=== PATIENT | male | born 1990 | race Caucasian/White ===

== ENCOUNTER → 2022-07-02 10:41 | Outpatient (CLI) | payer BC, SELFPAY ==
[2022-07-02 18:55] LABS: Basophils % 0.6 % (0.1-2.0); Eosinophils # 0.2 K/mm3 (0.0-0.4); Eosinophils % 2.5 % (0.1-12.0); Hematocrit 41.4 % (42.0-52.0); Hemoglobin 13.9 g/dL (14.1-18.0); Lymphocytes # 1.4 K/mm3 (0.7-4.5); Lymphocytes % 19.4 % (10-50); Mean Corpuscular HGB Conc 33.5 g/dL (31.8-35.4); Mean Corpuscular Hemoglobin 26.5 pg (27.0-31.2); Mean Corpuscular Volume 79.3 fl (80-94); Mean Platelet Volume 8.7 fl (7.4-10.4); Monocytes # 0.7 K/mm3 (0.1-1.0); Monocytes % 9.7 % (1.7-9.3); Neutrophils % 67.8 % (37.0-80.0); Platelet Count 273 K/mm3 (142-424); Red Blood Count 5.23 M/mm3 (4.60-6.20); Red Cell Distribution Width 13.5 % (11.5-17.5); White Blood Count 7.4 K/mm3 (4.8-10.8)
[2022-07-02 19:02] LABS: Alanine Aminotransferase 36 U/L (12-78); Albumin Level 4.5 g/dl (3.5-5.0); Albumin/Globulin Ratio 1.6 (1.1-1.8); Alkaline Phosphatase 110 U/L (38-126); Aspartate Amino Transferase 38 U/L (17-59); Bilirubin,Total 0.5 mg/dl (0.2-1.3); Blood Urea Nitrogen 13 mg/dl (9-20); Calcium 9.4 mg/dl (8.4-10.2); Carbon Dioxide 27 mmol/L (22.0-30.0); Chloride 101 mmol/L (98-107); Estimated Glomerular Filt Rate 79 ml/min (>60); GFR (African American) 95 ML/MIN (>60); Globulin 2.8 g/dL (1.3-3.2); Glucose 97 mg/dl (74-100); Sodium 137 mmol/L (136-145); Total Protein,Serum 7.3 g/dl (6.3-8.2)
== END | disposition home or self-care (01) ==
PROVIDERS: PCP Nurse Practitioner Family; Visit Provider Nurse Practitioner Family
DX: R19.7 Diarrhea, unspecified (principal)
CPT/HCPCS: 80053; 85025

== ENCOUNTER 2022-07-07 10:52 | Emergency (ER) | payer BC, SELFPAY ==
[2022-07-07 12:15] VITALS: BP 112/71; PULSE 101; RESP 18; TEMP 36.8; O2SAT 98; BMI 26.6
--- NOTE | 2022-07-07 12:40 | EXP.UTC ---
Discharge Plan Disposition Patient Disposition: Home, Self-Care Condition: Good Prescriptions Prescriptions: New ondansetron HCl 4 mg tablet 4 mg PO Q8H PRN (Reason: nausea and vomiting) Qty: 14 0RF No Action mycophenolate mofetil [CellCept] 500 mg tablet 1,000 mg PO BID sirolimus [Rapamune] 0.5 mg tablet 2.5 mg PO DAILY nifedipine 60 mg tablet extended release 60 mg PO BID lisinopril 10 mg tablet 10 mg PO DAILY rosuvastatin [Crestor] 40 mg tablet 40 mg PO DAILY fexofenadine [Brigette Allergy] 180 mg tablet 180 mg PO DAILY Referrals Follow up/Referrals: Negrito Arreaga MD [Primary Care Provider] - See instructions Activity Restrictions/Add. Instructions Additional Instructions/Restrictions: Monitor temperature. Seek treatment if fever develops. Follow-up immediately if new or worse symptoms worsen or no noticeable improvement over 48 hours. Increase fluids such as water, Gatorade, Powerade, juice or Pedialyte with limited formula/dietary in children No food is okay as long as you are drinking. Once ready to eat start bland such as bananas, rice, applesauce, toast. Contagious until no diarrhea, vomiting, fever times 48 hours without medication Avoid antidiarrheals unless told otherwise. Best to let the virus run its course. Follow-up immediately for new or worsening symptoms or no noticeable improvement over the next 48 hours. Clinical Impressions Clinical Impression: Diarrhea, Nausea Instructions Patient Instructions: Diarrhea Discharge ED Provider: Nanci ([facility] [place] General Stated complaint: Vomitting, diarreah, abd pain, chills Mode of Arrival: Ambulatory Source of Information: Patient Limitations: No Limitations Time Seen by Provider: 07/07/22 12:40 Description of Symptoms (Recalled from Triage Doc. by RN): PATIENT C/O DIARRHEA, CHILLS AND FATIGUE X 1 WEEK HEENT Symptoms (Recalled from RN notes): No Resp Symptoms (Recalled from RN notes): No Skin Symptoms (Recalled from RN notes): No MS Symptoms (Recalled from RN notes): No Functional Status (Recalled from RN notes): WNL History of Present Illness Provider Complaint: 32 yr old male presents for fatigue, diarrhea,nausea and chills for 1 week. pt states on th it improved and them became watery again Related Data Home Medications Medication Instructions Recorded Confirmed fexofenadine 180 mg tablet 180 mg PO DAILY 07/02/22 07/02/22 (Brigette Allergy) lisinopril 10 mg tablet 10 mg PO DAILY 07/02/22 07/02/22 mycophenolate mofetil 500 mg 1,000 mg PO BID kidney transplant 07/02/22 07/02/22 tablet (CellCept) nifedipine 60 mg tablet,extended 60 mg PO BID 07/02/22 07/02/22 release rosuvastatin 40 mg tablet (Crestor) 40 mg PO DAILY 07/02/22 07/02/22 sirolimus 0.5 mg tablet (Rapamune) 2.5 mg PO DAILY kidney transplant 07/02/22 07/02/22 Previous Rx's Medication Instructions Recorded ondansetron HCl 4 mg tablet 4 mg PO Q8H PRN nausea and 07/07/22 vomiting #14 tabs Allergies Allergy/AdvReac Type Severity Reaction Status Date / Time hydroxyzine Allergy Unknown Verified 07/02/22 14:46 amoxicillin [From Augmentin] Allergy tachycardia Verified 07/02/22 14:46 clavulanic acid Allergy tachycardia Verified 07/02/22 14:46 [From Augmentin] codeine Allergy tachycardia Verified 07/02/22 14:46 oseltamivir [From Tamiflu] Allergy Nausea Verified 07/02/22 14:46 shellfish Allergy Unknown Uncoded 07/02/22 14:46 peanuts Allergy Nausea Uncoded 07/02/22 14:46 Worker's Comp Is this a Worker's Comp case?: No [facility] Disclaimer: The information contained in this section may have been updated after the patient was seen, as this information can be updated by other users. 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
[2022-07-07 12:49] LABS: Adenovirus,PCR Not Detected (NotDetected); Bordetella Pertussis Not Detected (NotDetected); Chlamydophila Pneumoniae, PCR Not Detected (NotDetected); Coronavirus 19, PCR Not Detected (NotDetected); Coronavirus 229E Not Detected (NotDetected); Coronavirus NL63 Not Detected (NotDetected); Coronavirus OC43 Not Detected (NotDetected); Coronovirus HKU1,PCR Not Detected (NotDetected); Human Metapneumovirus Not Detected (NotDetected); Influenza A, PCR Not Detected (NotDetected); Influenza AH1, 2009 Not Detected (NotDetected); Influenza AH1, PCR Not Detected (NotDetected); Influenza AH3,PCR Not Detected (NotDetected); Influenza B, PCR Not Detected (NotDetected); Mycoplasma Pneumoniae, PCR Not Detected (NotDetected); Parainfluenza 1, PCR Not Detected (NotDetected); Parainfluenza 2, PCR Not Detected (NotDetected); Parainfluenza 3, PCR Not Detected (NotDetected); Parainfluenza 4, PCR Not Detected (NotDetected); Respiratory Syncytial Virus Not Detected (NotDetected); Rhinovirus/Enterovirus Not Detected (NotDetected)
[2022-07-07 12:55] VITALS: BP 112/71; PULSE 101; RESP 18; TEMP 36.8; O2SAT 98
[2022-07-07 17:37] LABS: Adenovirus F 40/41, stool Not Detected (NotDetected); Astrovirus Not Detected (NotDetected); Campylobacter Not Detected (NotDetected); Clostridium Difficile A/B, PCR Not Detected (NotDetected); Cyclospora Cayetanesis Not Detected (NotDetected); Entamoeba histolytica Not Detected (NotDetected); Enteroaggregative E coli Not Detected (NotDetected); Enteropathogenic E coli Not Detected (NotDetected); Enterotoxigenic E coli Not Detected (NotDetected); Giardia lamblia Not Detected (NotDetected); Norovirus Not Detected (NotDetected); Plesimonas Shigalloides, PCR Not Detected (NotDetected); Rotavirus A Not Detected (NotDetected); Salmonella, PCR Not Detected (NotDetected); Sapovirus Not Detected (NotDetected); Shiga-like toxin E coli Not Detected (NotDetected); Shigella Enterovasive E coli Not Detected (NotDetected); Vibrio Cholerae Not Detected (NotDetected); Vibrio, PCR Not Detected (NotDetected); Yersinia Entercolitica, PCR Not Detected (NotDetected)
[2022-07-07 20:21] LABS: Cryptosporidium Detected (NotDetected)
--- NOTE | 2022-07-08 09:38 | PC.NURSE ---
pt called and notified about stool sample results.
== END 2022-07-07 12:58 | disposition home or self-care (01) ==
PROVIDERS: Emergency Provider Nurse Practitioner Family; PCP Family Medicine
DX: R19.7 Diarrhea, unspecified (principal)
CPT/HCPCS: 87507; 87581; 87632; 87798; 99212; C9803; G0463; U0003; U0005

== ENCOUNTER 2022-07-12 19:36 | Emergency (ER) | payer BC, SELFPAY ==
[2022-07-12 21:00] VITALS: BP 111/69; PULSE 102; RESP 18; TEMP 36.9; O2SAT 98; BMI 24.9
[2022-07-12 21:30] VITALS: BP 113/68; PULSE 93; O2SAT 99
[2022-07-12 22:00] VITALS: BP 109/69; PULSE 94; O2SAT 100
--- NOTE | 2022-07-12 22:07 | PC.NURSE ---
Pt provided with warm blanket. No other needs voiced at this time.
[2022-07-12 22:11] LABS: Basophils % 0.4 % (0.1-2.0); Eosinophils # 0.5 K/mm3 (0.0-0.4); Eosinophils % 4.4 % (0.1-12.0); Hematocrit 36.7 % (42.0-52.0); Hemoglobin 12.7 g/dL (14.1-18.0); Lymphocytes # 1.8 K/mm3 (0.7-4.5); Lymphocytes % 17.5 % (10-50); Mean Corpuscular HGB Conc 34.5 g/dL (31.8-35.4); Mean Corpuscular Volume 75.5 fl (80-94); Mean Platelet Volume 8.5 fl (7.4-10.4); Monocytes # 0.5 K/mm3 (0.1-1.0); Monocytes % 4.4 % (1.7-9.3); Neutrophils # 7.5 K/mm3 (1.8-7.8); Neutrophils % 73.2 % (37.0-80.0); Platelet Count 261 K/mm3 (142-424); Red Blood Count 4.87 M/mm3 (4.60-6.20); White Blood Count 10.3 K/mm3 (4.8-10.8)
[2022-07-12 22:21] LABS: Alanine Aminotransferase 39 U/L (12-78); Albumin Level 4.3 g/dl (3.5-5.0); Albumin/Globulin Ratio 1.2 (1.1-1.8); Alkaline Phosphatase 126 U/L (38-126); Anion Gap 14.8 mEq/L (5-15); Aspartate Amino Transferase 45 U/L (17-59); Bilirubin,Total 0.5 mg/dl (0.2-1.3); Blood Urea Nitrogen 14 mg/dl (9-20); Calcium 9.4 mg/dl (8.4-10.2); Carbon Dioxide 21 mmol/L (22.0-30.0); Chloride 98 mmol/L (98-107); Creatinine Clearance Estimated 98 mL/min (50-200); Estimated Glomerular Filt Rate 71 ml/min (>60); GFR (African American) 86 ML/MIN (>60); Globulin 3.5 g/dL (1.3-3.2); Glucose 100 mg/dl (74-100); Lactic Acid 0.6 mmol/L (0.7-2.1); Sodium 131 mmol/L (136-145); Total Protein,Serum 7.8 g/dl (6.3-8.2)
[2022-07-12 22:30] VITALS: BP 113/71; PULSE 97; O2SAT 100
[2022-07-12 22:36] LABS: Erythrocyte Sedimentation Rate 88 mm/hr (0-15)
[2022-07-12 22:37] LABS: Potassium 2.8 mmoL/L (3.5-5.1)
--- NOTE | 2022-07-12 22:37 | PC.NURSE ---
Dr. Gonzales notified of critical potassium
[2022-07-12 22:39] LABS: Procalcitonin 0.085 ng/mL (0.0-2.0)
[2022-07-12 23:01] VITALS: BP 111/68; PULSE 107; O2SAT 99
[2022-07-12 23:27] LABS: Microscopic, Urine URINE MICROSCOPIC (MICROSCOPIC)
[2022-07-12 23:30] LABS: Appearance,Urine CLEAR (Clear); Bilirubin,Urine Negative (Negative); Blood, Urine 2+ (Negative); Color,Urine YELLOW (Yellow); Glucose,Urine (UA) Negative (Negative); Ketones,Urine TRACE (Negative); Leukocyte Esterase,Urine Negative (Negative); Nitrate,Urine Negative (Negative); Protein,Urine 1+ (Negative); Urobilinogen,Urine 0.2 EU/dl (0.2)
[2022-07-12 23:55] LABS: Amorphous Sediment,Urine 1+ /lpf
--- NOTE | 2022-07-13 00:05 | HMH.EDWEAK ---
Discharge Plan Disposition Patient Disposition: Home, Self-Care Prescriptions Prescriptions: New prednisone 20 mg tablet 20 mg PO DAILY Qty: 10 0RF No Action mycophenolate mofetil [CellCept] 500 mg tablet 1,000 mg PO BID sirolimus [Rapamune] 0.5 mg tablet 2.5 mg PO DAILY nifedipine 60 mg tablet extended release 60 mg PO BID lisinopril 10 mg tablet 10 mg PO DAILY rosuvastatin [Crestor] 40 mg tablet 40 mg PO DAILY fexofenadine [Brigette Allergy] 180 mg tablet 180 mg PO DAILY PRN (Reason: allergies) nitazoxanide 500 mg tablet 500 mg PO BID Rx Instructions: must administer with a meal/food Referrals Follow up/Referrals: Negrito Arreaga MD [Primary Care Provider] - See instructions Clinical Impressions Clinical Impression: Cryptococcal gastroenteritis, Acute hypokalemia, Reactive arthritis of multiple sites, Renal transplant recipient Instructions Patient Instructions: DI for Arthritis Discharge ED Provider: Anirudh Gonzales Weakness HPI General Chief complaint: Weakness Stated complaint: JOINT PAIN Time Seen by Provider: 07/13/22 00:05 Mode of Arrival: Family Vehicle Source of Information: Patient, Relative and Medical Record Limitations: No Limitations Description of Symptoms (Recalled from ER Triage Doc. by RN): Pt c/o swollen, red, and painful joints to BLE, L wrist, and R hand/fingers. He also c/o chills, fatigue, and weaknes. States he was dx with cryptosporidium 07/07 and was started on Nitazoxanide. Pt states he talked to Dr. Arreaga about his swollen, red, painful joints and wanted him to get it checked out if it worsened. Pt feels that it is spreading to more joints. He is a kindey transplant recipient. History of Present Illness HPI Narrative: pt with hx of recent infection with crypto and on approp med but has jt pain with reddness to lt wrist rt middle finger and arthragia to knees - no vomiting Complaint: generalized weakness Onset (ago): day(s) Duration: intermittent Location: left hand and right hand Migration: none Severity: moderate Context: recent illness Related Data Home Medications Medication Instructions Recorded Confirmed fexofenadine 180 mg tablet 180 mg PO DAILY PRN allergies 07/02/22 07/12/22 (Brigette Allergy) lisinopril 10 mg tablet 10 mg PO DAILY High blood pressure 07/02/22 07/12/22 mycophenolate mofetil 500 mg 1,000 mg PO BID kidney transplant 07/02/22 07/12/22 tablet (CellCept) nifedipine 60 mg tablet,extended 60 mg PO BID High blood pressure 07/02/22 07/12/22 release rosuvastatin 40 mg tablet (Crestor) 40 mg PO DAILY Cholesterol 07/02/22 07/12/22 sirolimus 0.5 mg tablet (Rapamune) 2.5 mg PO DAILY kidney transplant 07/02/22 07/12/22 nitazoxanide 500 mg tablet 500 mg PO BID crypo diarrhea 07/12/22 07/12/22 Previous Rx's Medication Instructions Recorded prednisone 20 mg tablet 20 mg PO DAILY #10 tabs 07/13/22 Allergies Allergy/AdvReac Type Severity Reaction Status Date / Time hydroxyzine Allergy Unknown Verified 07/02/22 14:46 amoxicillin [From Augmentin] Allergy tachycardia Verified 07/02/22 14:46 clavulanic acid Allergy tachycardia Verified 07/02/22 14:46 [From Augmentin] codeine Allergy tachycardia Verified 07/02/22 14:46 oseltamivir [From Tamiflu] Allergy Nausea Verified 07/02/22 14:46 shellfish Allergy Unknown Uncoded 07/02/22 14:46 peanuts Allergy Nausea Uncoded 07/02/22 14:46 PFSH PFSH Disclaimer: The information contained in this section may have been updated after the patient was seen, as this information can be updated by other users. 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
[2022-07-13 00:24] VITALS: BP 107/64; PULSE 80; RESP 18; TEMP 36.9; O2SAT 97
== END 2022-07-13 01:08 | disposition home or self-care (01) ==
PROVIDERS: Emergency Provider Emergency Medicine; PCP Family Medicine
DX: A07.2 Cryptosporidiosis (principal); R53.1 Weakness; R53.82 Chronic fatigue, unspecified; M79.89 Other specified soft tissue disorders; I10 Essential (primary) hypertension; J45.909 Unspecified asthma, uncomplicated; Z79.899 Other long term (current) drug therapy; Z79.52 Long term (current) use of systemic steroids; Z88.0 Allergy status to penicillin; Z88.1 Allergy status to other antibiotic agents; Z88.3 Allergy status to other anti-infective agents; Z88.5 Allergy status to narcotic agent; Z88.8 Allergy status to other drugs, medicaments and biological substances; Z91.010 Allergy to peanuts; Z91.013 Allergy to seafood; Z94.0 Kidney transplant status; Z82.49 Family history of ischemic heart disease and other diseases of the circulatory system
CPT/HCPCS: 80053; 81001; 83605; 84145; 85025; 85651; 86140; 96361; 96374; 99284

== ENCOUNTER → 2023-07-25 16:51 | Outpatient (CLI) | payer BC, SELFPAY ==
[2023-07-24 16:30] LABS: Basophils # 0.1 K/mm3 (0-0.2); Basophils % 0.6 % (0.1-2.0); Eosinophils # 0.1 K/mm3 (0.0-0.4); Eosinophils % 1.2 % (0.1-12.0); Hematocrit 35.2 % (42.0-52.0); Hemoglobin 12.5 g/dL (14.1-18.0); Lymphocytes # 2.1 K/mm3 (0.7-4.5); Lymphocytes % 19.8 % (10-50); Mean Corpuscular HGB Conc 35.4 g/dL (31.8-35.4); Mean Corpuscular Hemoglobin 27.3 pg (27.0-31.2); Mean Corpuscular Volume 76.9 fl (80-94); Mean Platelet Volume 8.7 fl (7.4-10.4); Monocytes # 0.7 K/mm3 (0.1-1.0); Monocytes % 6.7 % (1.7-9.3); Neutrophils # 7.5 K/mm3 (1.8-7.8); Neutrophils % 71.7 % (37.0-80.0); Platelet Count 289 K/mm3 (142-424); Red Blood Count 4.58 M/mm3 (4.60-6.20); White Blood Count 10.5 K/mm3 (4.8-10.8)
[2023-07-24 16:45] LABS: Anion Gap 12.4 mEq/L (5-15); Blood Urea Nitrogen 15 mg/dl (9-20); Calcium 8.7 mg/dl (8.4-10.2); Carbon Dioxide 25 mmol/L (22.0-30.0); Chloride 101 mmol/L (98-107); Estimated Glomerular Filt Rate 87 ml/min (>60); GFR (African American) 105 ML/MIN (>60); Glucose 88 mg/dl (74-100); Potassium 4.4 mmoL/L (3.5-5.1); Sodium 134 mmol/L (136-145); Uric Acid 7.1 mg/dl (3.5-8.5)
[2023-07-24 16:50] LABS: C-Reactive Protein 20.8 mg/L (0-4)
[2023-07-24 17:04] LABS: Erythrocyte Sedimentation Rate 81 mm/hr (0-15)
[2023-07-30 22:43] LABS: Antinuclear Antibodies (ANA) Negative
== END ==
LOC: LAB.DROPOF 16:52
PROVIDERS: PCP Family Medicine; Visit Provider Nurse Practitioner Family
DX: M25.50 Pain in unspecified joint (principal)
CPT/HCPCS: 80048; 84550; 85025; 85651; 86038; 86140

== ENCOUNTER 2024-03-30 19:37 | Outpatient (CLI) | payer BC, SELFPAY ==
[2024-03-30 20:01] LABS: Adenovirus F 40/41, stool Not Detected (NotDetected); Astrovirus Not Detected (NotDetected); Campylobacter Not Detected (NotDetected); Clostridium Difficile A/B, PCR Not Detected (NotDetected); Cyclospora Cayetanesis Not Detected (NotDetected); Entamoeba histolytica Not Detected (NotDetected); Enteroaggregative E coli Not Detected (NotDetected); Enteropathogenic E coli Not Detected (NotDetected); Enterotoxigenic E coli Not Detected (NotDetected); Giardia lamblia Not Detected (NotDetected); Norovirus Not Detected (NotDetected); Plesimonas Shigalloides, PCR Not Detected (NotDetected); Rotavirus A Not Detected (NotDetected); Salmonella, PCR Not Detected (NotDetected); Sapovirus Not Detected (NotDetected); Shiga-like toxin E coli Not Detected (NotDetected); Shigella Enterovasive E coli Not Detected (NotDetected); Vibrio Cholerae Not Detected (NotDetected); Vibrio, PCR Not Detected (NotDetected); Yersinia Entercolitica, PCR Not Detected (NotDetected)
[2024-03-31 00:05] LABS: Cryptosporidium Detected (NotDetected)
== END 2024-03-30 23:59 | disposition home or self-care (01) ==
PROVIDERS: PCP Family Medicine; Visit Provider Family Medicine
DX: R19.7 Diarrhea, unspecified (principal)
CPT/HCPCS: 87507

== ENCOUNTER 2024-04-02 22:27 | Observation (INO) | payer BC, SELFPAY ==
[2024-04-02 22:42] VITALS: BP 118/67; PULSE 108; RESP 18; TEMP 36.9; O2SAT 100; BMI 26.1
[2024-04-02 23:00] VITALS: BP 105/63; PULSE 99; O2SAT 100
--- NOTE | 2024-04-02 23:09 | ED_ITS ---
<Statement entered by Etienne Nuno MD - 04/03/24 00:05> I was consulted by the MIGUE, and we discussed the complexity of problems being addressed. I approved the treatment and management plan for this patient's care in the emergency department, thus performing a substantial portion of the medical decision making. I personally evaluated the patient and reviewed his symptoms and current presentation. Nonacute abdomen on exam. Patient does have a history of solid organ transplant approximately 10 years ago. He is only on mycophenolate and low-dose sirolimus at this time. He states he has had similar symptoms which he now realized was Cryptosporidium previously which reportedly spontaneously resolved. Patient admits he has had difficulty tolerating oral intake and is not surprised by the findings of dehydration and mild kidney dysfunction at this time. He requires admission for fluid repletion and monitoring of kidney function, improvement of oral intake and tolerance of oral fluids, continued treatment of the Cryptosporidium which will likely have to be an extended course due to his immunosuppression. Patient accepted by the hospitalist for this purpose. Etienne Nuno MD Discharge Plan Disposition Chief Complaint: Nausea/Vomiting/Diarrhea Discharge ED Provider: Etienne Nuno General Adult [facility] General Chief complaint: Nausea/Vomiting/Diarrhea Stated complaint: diarrhea, nausea, vomiting Time Seen by Provider: 04/02/24 22:40 Mode of Arrival: Ambulatory Source of Information: Patient Limitations: No Limitations Description of Symptoms (Recalled from ER Triage Doc. by RN): Pt reports to the ED with cc of nausea, vomitting, and diarrhea that started last 03/25. Pt states being dx with an infection on friday 03/30. Pt states he has been taking antibiotics since. Pt also states having chills but denies any fevers. History of Present Illness HPI narrative: This is a 34-year-old male who presents to the ED today with complaint of nausea, vomiting and diarrhea that started last week. Patient was in [place] most recently in says he drank the tap water a couple times and then started with the symptoms of nausea, vomiting and diarrhea. His fianc?e has this as well. He has become progressively worse as the days have gone on. He has no fevers but he does have chills for the last week. Denies joint pain but feels very dehydrated. He states that he has been taking antibiotics for Cryptosporidium. He has had 3-4 episodes of diarrhea today. He did try to eat but as soon as he ate he had an episode of vomiting and diarrhea. He does have history of kidney transplant in 2009, hypertension, allergies and asthma. He is taking nitazoxanide. Related Data Home Medications ?Medication ?Instructions ?Recorded ?Confirmed fexofenadine 180 mg tablet 180 mg PO DAILY PRN allergies 07/02/22 03/30/24 (Brigette Allergy) mycophenolate mofetil 500 mg 1,000 mg PO BID kidney transplant 07/02/22 03/30/24 tablet (CellCept) rosuvastatin 40 mg tablet (Crestor) 40 mg PO DAILY Cholesterol 07/02/22 03/30/24 benzoyl peroxide 5 % lotion (Acne topical 07/15/23 03/30/24 Medication) lisinopril 40 mg tablet 40 mg PO DAILY HTN 07/15/23 03/30/24 sirolimus 1 mg tablet 0.5 mg PO DAILY renal transplant 07/15/23 03/30/24 Previous Rx's ?Medication ?Instructions ?Recorded albuterol sulfate 90 mcg/actuation 2 puff inhalation Q6H PRN 07/15/23 aerosol inhaler shortness of breath or wheezing #6.7 grams nitazoxanide 500 mg tablet 500 mg PO
--- NOTE | 2024-04-02 23:09 | HMH.EDGENADL ---
Discharge Plan Disposition Chief Complaint: Nausea/Vomiting/Diarrhea Discharge ED Provider: Etienne Nuno General Adult HPI General Chief complaint: Nausea/Vomiting/Diarrhea Stated complaint: diarrhea, nausea, vomiting Time Seen by Provider: 04/02/24 22:40 Mode of Arrival: Ambulatory Source of Information: Patient Limitations: No Limitations Description of Symptoms (Recalled from ER Triage Doc. by RN): Pt reports to the ED with cc of nausea, vomitting, and diarrhea that started last 03/25. Pt states being dx with an infection on friday 03/30. Pt states he has been taking antibiotics since. Pt also states having chills but denies any fevers. History of Present Illness HPI narrative: This is a 34-year-old male who presents to the ED today with complaint of nausea, vomiting and diarrhea that started last week. Patient was in [place] most recently in says he drank the tap water a couple times and then started with the symptoms of nausea, vomiting and diarrhea. His fianc?e has this as well. He has become progressively worse as the days have gone on. He has no fevers but he does have chills for the last week. Denies joint pain but feels very dehydrated. He states that he has been taking antibiotics for Cryptosporidium. He has had 3-4 episodes of diarrhea today. He did try to eat but as soon as he ate he had an episode of vomiting and diarrhea. He does have history of kidney transplant in 2009, hypertension, allergies and asthma. He is taking nitazoxanide. Related Data Home Medications ?Medication ?Instructions ?Recorded ?Confirmed fexofenadine 180 mg tablet 180 mg PO DAILY PRN allergies 07/02/22 03/30/24 (Brigette Allergy) mycophenolate mofetil 500 mg 1,000 mg PO BID kidney transplant 07/02/22 03/30/24 tablet (CellCept) rosuvastatin 40 mg tablet (Crestor) 40 mg PO DAILY Cholesterol 07/02/22 03/30/24 benzoyl peroxide 5 % lotion (Acne topical 07/15/23 03/30/24 Medication) lisinopril 40 mg tablet 40 mg PO DAILY HTN 07/15/23 03/30/24 sirolimus 1 mg tablet 0.5 mg PO DAILY renal transplant 07/15/23 03/30/24 Previous Rx's ?Medication ?Instructions ?Recorded albuterol sulfate 90 mcg/actuation 2 puff inhalation Q6H PRN 07/15/23 aerosol inhaler shortness of breath or wheezing #6.7 grams nitazoxanide 500 mg tablet 500 mg PO BID 3 days #6 tabs 03/31/24 Allergies Allergy/AdvReac Type Severity Reaction Status Date / Time hydroxyzine Allergy Unknown Verified 03/30/24 14:57 amoxicillin [From Augmentin] Allergy tachycardia Verified 03/30/24 14:57 clavulanic acid Allergy tachycardia Verified 03/30/24 14:57 [From Augmentin] codeine Allergy tachycardia Verified 03/30/24 14:57 oseltamivir [From Tamiflu] Allergy Nausea Verified 03/30/24 14:57 PFSH PFSH Disclaimer: The information contained in this section may have been updated after the patient was seen, as this information can be updated by other users. Medical History Asthma Seasonal allergies Hypertension Surgical History Kidney transplant recipient Family History Father Hypertension Grandmother Stroke Social History Smoking Status: Never smoker alcohol intake: current alcohol intake frequency: holidays/special occasions only substance use type: denies use current occupational status: employed Travel in the last 8 weeks: [facility] housing: house ROS Obtained: Yes Systems reviewed as appropriate & no additional complaints except as documented Physical Exam General General appearance: alert and in distress (Pale and diaphoretic) Head Head exam: atraumatic and normocephalic Eye Eye exam: Present normal appearance, PERRL and EOMI ENT ENT exam: Present normal exam and mucous membranes dry Neck Neck exam: Present normal inspec
--- NOTE | 2024-04-02 23:13 | ECG_ITS ---
APPROVED REPORT Exam: Resting ECG HR:87 bpm ECG Measurements Heart Rate 87 AXES RI 113 P 19 QRSd 89 QRS 36 QT 344 T 64 QTc 389 Conclusion SINUS RHYTHM WITH SHORT RI INTERVAL NONSPECIFIC T-WAVE ABNORMALITY BORDERLINE ECG No STEMI Electronically signed by : CARI DAVIS, 04/03/2024 06:47:55
[2024-04-02 23:15] LABS: Albumin Level 4.9 g/dl (3.5-5.0); Chloride 98 mmol/L (98-107); Potassium 3.8 mmoL/L (3.5-5.1); Sodium 130 mmol/L (136-145)
[2024-04-02 23:17] LABS: Blood Urea Nitrogen 34 mg/dl (9-20); Creatinine Clearance Estimated 59 mL/min (50-200); Estimated Glomerular Filt Rate 37 ml/min (>60); GFR (African American) 45 ML/MIN (>60); Lactic Acid 1.1 mmol/L (0.7-2.1)
[2024-04-02 23:18] LABS: Alanine Aminotransferase 43 U/L (12-78); Albumin/Globulin Ratio 1.2 (1.1-1.8); Alkaline Phosphatase 101 U/L (38-126); Anion Gap 15.8 mEq/L (5-15); Aspartate Amino Transferase 32 U/L (17-59); Bilirubin,Total 0.8 mg/dl (0.2-1.3); Calcium 9.7 mg/dl (8.4-10.2); Carbon Dioxide 20 mmol/L (22.0-30.0); Glucose 110 mg/dl (74-100); Lipase 68 U/L (23-300); Magnesium 1.9 mg/dl (1.6-2.3); Total Protein,Serum 8.9 g/dl (6.3-8.2)
[2024-04-02 23:24] LABS: Basophils # 0.1 K/mm3 (0-0.2); Basophils % 0.5 % (0.1-2.0); Eosinophils # 0.2 K/mm3 (0.0-0.4); Eosinophils % 1.6 % (0.1-12.0); Hematocrit 35.5 % (42.0-52.0); Lymphocytes # 2.1 K/mm3 (0.7-4.5); Lymphocytes % 15.2 % (10-50); Mean Corpuscular HGB Conc 33.9 g/dL (31.8-35.4); Mean Corpuscular Hemoglobin 26.2 pg (27.0-31.2); Mean Corpuscular Volume 77.4 fl (80-94); Mean Platelet Volume 8.2 fl (7.4-10.4); Monocytes # 0.8 K/mm3 (0.1-1.0); Neutrophils # 10.7 K/mm3 (1.8-7.8); Neutrophils % 76.8 % (37.0-80.0); Platelet Count 404 K/mm3 (142-424); Red Blood Count 4.59 M/mm3 (4.60-6.20); Red Cell Distribution Width 15.3 % (11.5-17.5); White Blood Count 13.9 K/mm3 (4.8-10.8)
[2024-04-02 23:33] LABS: Troponin I < 0.01 ng/ml (0.00-0.034)
--- NOTE | 2024-04-02 23:39 | PC.NURSE ---
shahnaz on phone with hospitalist discussing admission
--- NOTE | 2024-04-02 23:42 | PC.NURSE ---
notified boardinghouse keeper of need for bed assignment. spoke with fabiola nix. dx: DENNY, admit to hospitalist.
--- NOTE | 2024-04-02 23:43 | EXP.HP ---
History of Present Illness *Admission Date: 04/02/24 *Reason for visit:: N/V/D *History of present illness: This is a 34-year-old male with PMHx of HTN, asthma, allergy and kidney transplant approximately 10 years ago. He is only on mycophenolate and low-dose sirolimus at this time. He presented to the ED today with complaint of nausea, vomiting and diarrhea that started last week. Patient stated he drank the tap water a couple times and then started with the symptoms of nausea, vomiting and diarrhea, that become progressively worse. He has no fevers but he does have chills for the last week. Denies joint pain but feels very dehydrated. He has been on nitazoxanide for diagnosis of Cryptosporidium. He has had 3-4 episodes of diarrhea today. He did try to eat but as soon as he ate he had an episode of vomiting and diarrhea. Admitted for further monitoring and evaluation. [facility] Medical History (Updated 04/03/24 @ 05:54 by Ez Wylie APRN) Asthma Seasonal allergies Hypertension Surgical History Kidney transplant recipient Family History Father Hypertension Grandmother Stroke Social History Smoking Status: Never smoker alcohol intake: current alcohol intake frequency: holidays/special occasions only substance use type: denies use current occupational status: employed Travel in the last 8 weeks: Inside the [place] housing: house Review of Systems Review of Systems Review of systems:: pertinent systems reviewed and negative unless documented below Meds Home Medications and Allergies Home Medications ?Medication ?Instructions ?Recorded ?Confirmed ?Type fexofenadine 180 mg tablet 180 mg PO DAILYP PRN allergies 07/02/22 04/03/24 History (Brigette Allergy) mycophenolate mofetil 500 mg 1,000 mg PO BID 07/02/22 04/03/24 History tablet (CellCept) rosuvastatin 40 mg tablet (Crestor) 40 mg PO HS 07/02/22 04/03/24 History lisinopril 40 mg tablet 40 mg PO DAILY 07/15/23 04/03/24 History sirolimus 1 mg tablet 2.5 mg PO DAILY 07/15/23 04/03/24 History nitazoxanide 500 mg tablet 500 mg PO BID 3 days #6 tabs 03/31/24 04/03/24 Rx albuterol sulfate 90 mcg/actuation 2 puff inhalation Q6HP PRN 04/03/24 04/03/24 History aerosol inhaler shortness of breath or wheezing New Prescriptions to Start Prescriptions: Allergies Allergy/AdvReac Type Severity Reaction Status Date / Time hydroxyzine Allergy Unknown Verified 03/30/24 14:57 amoxicillin [From Augmentin] Allergy tachycardia Verified 03/30/24 14:57 clavulanic acid Allergy tachycardia Verified 03/30/24 14:57 [From Augmentin] codeine Allergy tachycardia Verified 03/30/24 14:57 oseltamivir [From Tamiflu] Allergy Nausea Verified 03/30/24 14:57 Exam Data for Last 24 hours Vital signs and Labs for Last 24 Hours: Temp Pulse Resp BP Pulse Ox O2 Del Method 98.5 F 108 H 18 118/67 100 Room Air 04/02/24 22:42 04/02/24 22:42 04/02/24 22:42 04/02/24 22:42 04/02/24 22:42 04/02/24 22:42 Laboratory Results - last 24 hr 04/02/24 22:57: WBC 13.9 H, RBC 4.59 L, Hgb 12.0 L, Hct 35.5 L, MCV 77.4 L, MCH 26.2 L, MCHC 33.9, RDW 15.3, Plt Count 404, MPV 8.2, Neut % (Auto) 76.8, Lymph % (Auto) 15.2, Bradley % (Auto) 6.0, Eos % (Auto) 1.6, Baso % (Auto) 0.5, Neut # (Auto) 10.7 H, Lymph # (Auto) 2.1, Bradley # (Auto) 0.8, Eos # (Auto) 0.2, Baso # (Auto) 0.1, Sodium 130 L, Potassium 3.8, Chloride 98, Carbon Dioxide 20 L, Anion Gap 15.8 H, BUN 34 H, Creatinine 2.10 H, Estimated Creat Clear 59, Estimated GFR 37 L, Est GFR ( Amer) 45 L, Glucose 110 H, Lactate 1.1, Calcium 9.7, Magnesium 1.9, Total Bilirubin 0.8, AST 32, ALT 43, Alkaline Phosphatase 101, Troponin I < 0.01, Total Protein 8.9 H, Albumin 4.9, Globulin 4.0 H, Albumin/Globulin Ratio 1.2, Lipase 68 I & O for Last 24 hours: Intake &
[2024-04-03] VITALS (7 sets, daily range): BP systolic 98–137; BP diastolic 51–67; PULSE 86–101; RESP 16–20; TEMP 36.7–37.2; O2SAT 97–100; BMI 26.2
--- NOTE | 2024-04-03 00:02 | PC.NURSE ---
called lab per request of charge in regards of needing yellow top tubes for order by lab to collect blood spoke to linda
--- NOTE | 2024-04-03 00:11 | PC.NURSE ---
report called to eric
[2024-04-03 03:08] LABS: Microscopic, Urine URINE MICROSCOPIC (MICROSCOPIC)
[2024-04-03 03:10] LABS: Appearance,Urine CLEAR (Clear); Bilirubin,Urine Negative (Negative); Blood, Urine 1+ (Negative); Color,Urine YELLOW (Yellow); Glucose,Urine (UA) Negative (Negative); Ketones,Urine 1+ (Negative); Leukocyte Esterase,Urine TRACE (Negative); Nitrate,Urine Negative (Negative); PH,Urine 5.5 (5.0-8.5); Protein,Urine 1+ (Negative); Urobilinogen,Urine 0.2 EU/dl (0.2)
[2024-04-03 03:25] LABS: Squamous Epithelial Cell,Urine Occasional #/hpf (0-5)
[2024-04-03 03:26] LABS: Bacteria,Urine Trace /lpf; RBC,Urine Occasional #/hpf (0-3)
[2024-04-03 03:36] LABS: Troponin I < 0.01 ng/ml (0.00-0.034)
[2024-04-03 03:40] LABS: Adenovirus F 40/41, stool Not Detected (NotDetected); Astrovirus Not Detected (NotDetected); Campylobacter Not Detected (NotDetected); Clostridium Difficile A/B, PCR Not Detected (NotDetected); Cyclospora Cayetanesis Not Detected (NotDetected); Entamoeba histolytica Not Detected (NotDetected); Enteroaggregative E coli Not Detected (NotDetected); Enteropathogenic E coli Not Detected (NotDetected); Enterotoxigenic E coli Not Detected (NotDetected); Giardia lamblia Not Detected (NotDetected); Norovirus Not Detected (NotDetected); Plesimonas Shigalloides, PCR Not Detected (NotDetected); Rotavirus A Not Detected (NotDetected); Salmonella, PCR Not Detected (NotDetected); Sapovirus Not Detected (NotDetected); Shiga-like toxin E coli Not Detected (NotDetected); Shigella Enterovasive E coli Not Detected (NotDetected); Vibrio Cholerae Not Detected (NotDetected); Vibrio, PCR Not Detected (NotDetected); Yersinia Entercolitica, PCR Not Detected (NotDetected)
--- NOTE | 2024-04-03 05:50 | INFXCTL.NOTE ---
Care taken over from RASHEED Roe at 0100. pt is currently resting in bed with mother and father at bedside. pt is a&o x4 and has been ambulating independently to the bathroom this shift. pt has complained of intermittent diarrhea and nausea, but has not wanted any medication for these symptoms. urine and stool sample collected and sent to lab. lung sounds clear, bowels hyperactive, VSS. pt has not complained of any pain this shift. pt has eaten some chicken noodle soup and tolerated well, as well as drank plenty of fluids. NS running @100. contact precautions posted on door. pt has no complaints at this time. call light within reach, bed in low and locked position.
[2024-04-03 07:39] LABS: Alanine Aminotransferase 30 U/L (12-78); Albumin Level 3.7 g/dl (3.5-5.0); Albumin/Globulin Ratio 1.2 (1.1-1.8); Alkaline Phosphatase 77 U/L (38-126); Anion Gap 13.5 mEq/L (5-15); Aspartate Amino Transferase 67 U/L (17-59); Bilirubin,Total 0.6 mg/dl (0.2-1.3); Blood Urea Nitrogen 29 mg/dl (9-20); Calcium 8.6 mg/dl (8.4-10.2); Carbon Dioxide 16 mmol/L (22.0-30.0); Chloride 105 mmol/L (98-107); Creatinine Clearance Estimated 73 mL/min (50-200); Estimated Glomerular Filt Rate 47 ml/min (>60); GFR (African American) 57 ML/MIN (>60); Globulin 3.1 g/dL (1.3-3.2); Glucose 101 mg/dl (74-100); Magnesium 1.8 mg/dl (1.6-2.3); Potassium 3.5 mmoL/L (3.5-5.1); Sodium 131 mmol/L (136-145); Total Protein,Serum 6.8 g/dl (6.3-8.2)
[2024-04-03 07:46] LABS: Eosinophils # 0.2 K/mm3 (0.0-0.4); Mean Platelet Volume 8.5 fl (7.4-10.4)
[2024-04-03 07:52] LABS: Troponin I < 0.01 ng/ml (0.00-0.034)
[2024-04-03 07:53] LABS: Basophils # 0.1 K/mm3 (0-0.2); Basophils % 0.5 % (0.1-2.0); Eosinophils % 1.4 % (0.1-12.0); Lymphocytes # 1.6 K/mm3 (0.7-4.5); Mean Corpuscular HGB Conc 33.3 g/dL (31.8-35.4); Mean Corpuscular Hemoglobin 26.1 pg (27.0-31.2); Mean Corpuscular Volume 78.3 fl (80-94); Monocytes # 0.7 K/mm3 (0.1-1.0); Monocytes % 6.9 % (1.7-9.3); Neutrophils # 8.1 K/mm3 (1.8-7.8); Neutrophils % 76.2 % (37.0-80.0); Platelet Count 321 K/mm3 (142-424); Red Blood Count 3.83 M/mm3 (4.60-6.20); Red Cell Distribution Width 15.3 % (11.5-17.5); White Blood Count 10.6 K/mm3 (4.8-10.8)
[2024-04-03 10:12] LABS: HIV (1&2) Antibody Rapid NONREACTIVE (NONREACTIVE)
[2024-04-03 10:20] LABS: Cryptosporidium Detected (NotDetected)
--- NOTE | 2024-04-03 10:45 | HMH.PHAINT1 ---
Pharmacy Intervention Comments: MEDICATION RECONCILIATION COMPLETED ON PATIENT USING EXTERNAL FILL HISTORY FROM PHARMACY AND LIST FROM PCP OFFICE. -BERTHA KELLEY, HOLLYD
--- NOTE | 2024-04-03 16:07 | PC.NURSE ---
pt is a/o x4 on RA tolerating well. NS running. pt has ambulated to the bathroom independently, he has had several loose/watery BM this shift. no complaints of nausea or pain this shift. he has tolerated his diet well. home meds are in the omni, family at bedside, no further requests at this time.
--- NOTE | 2024-04-03 17:22 | EXP.PN ---
Subjective *Date: 04/03/24 *Time: 17:22 Interval history: The patient is seen and examined at bedside today. He is accompanied by his parents. He reports that he is feeling better. Nursing staff reports that he remains afebrile with stable vital signs and saturating appropriately on room air. His morning labs identified and improved creatinine down to 1.7 with a baseline of 1.0. Exam Data for Last 24 hours Vital signs and Labs for Last 24 Hours: Temp Pulse Resp BP Pulse Ox O2 Del Method 98.3 F 86 20 99/59 L 100 Room Air 04/03/24 12:00 04/03/24 12:00 04/03/24 12:00 04/03/24 12:00 04/03/24 12:00 04/03/24 14:58 Laboratory Results - last 24 hr 04/02/24 22:57: WBC 13.9 H, RBC 4.59 L, Hgb 12.0 L, Hct 35.5 L, MCV 77.4 L, MCH 26.2 L, MCHC 33.9, RDW 15.3, Plt Count 404, MPV 8.2, Neut % (Auto) 76.8, Lymph % (Auto) 15.2, [place] % (Auto) 6.0, Eos % (Auto) 1.6, Baso % (Auto) 0.5, Neut # (Auto) 10.7 H, Lymph # (Auto) 2.1, [place] # (Auto) 0.8, Eos # (Auto) 0.2, Baso # (Auto) 0.1, Sodium 130 L, Potassium 3.8, Chloride 98, Carbon Dioxide 20 L, Anion Gap 15.8 H, BUN 34 H, Creatinine 2.10 H, Estimated Creat Clear 59, Estimated GFR 37 L, Est GFR ( Amer) 45 L, Glucose 110 H, Lactate 1.1, Calcium 9.7, Magnesium 1.9, Total Bilirubin 0.8, AST 32, ALT 43, Alkaline Phosphatase 101, Troponin I < 0.01, Total Protein 8.9 H, Albumin 4.9, Globulin 4.0 H, Albumin/Globulin Ratio 1.2, Lipase 68 04/03/24 00:06: HIV 1&2 Antibody Rapid Nonreactive 04/03/24 03:00: Troponin I < 0.01, Urine Color Yellow, Urine Appearance Clear, Urine pH 5.5, Ur Specific [place] 1.020, Urine Protein 1+ A, Urine Glucose (UA) Negative, Urine Ketones 1+, Urine Blood 1+ A, Urine Nitrate Negative, Urine Bilirubin Negative, Urine Urobilinogen 0.2, Ur Leukocyte Esterase Trace, Urine RBC Occasional, Urine WBC 5-10, Ur Squamous Epith Cells Occasional, Urine Bacteria Trace 04/03/24 03:20: Stl Aeromonas (PCR) Not detected, Stl C. cayetanensis PCR Not detected, Stool Rotavirus (PCR) Not detected, Stl Adenov F 40/41 PCR Not detected, Stool Astrovirus (PCR) Not detected, Stool Campylobacter PCR Not detected, Stl C.difficile Tox PCR Not detected, Stool Cryptosporidium PCR Detected A, Stl E.coli Shiga Tox PCR Not detected, Stool E coli O157 PCR Not detected, Stl Enterotoxigenic E PCR Not detected, Stool EPEC (PCR) Not detected, Stool EAEC (PCR) Not detected, Stl E. histolytica PCR Not detected, Stool Giardia Lamblia PCR Not detected, Stool Salmonella PCR Not detected, Stool Sapovirus (PCR) Not detected, Stl P. shigelloides PCR Not detected, Stl Shigella/EIEC PCR Not detected, St Y.enterocolitica PCR Not detected, Stool Vibrio (PCR) Not detected, Stl Vibrio cholerae PCR Not detected, Stl Norovirus GI/GII PCR Not detected 04/03/24 06:00: WBC 10.6, RBC 3.83 L, Hgb 10.0 L D, Hct 30.0 L, MCV 78.3 L, MCH 26.1 L, MCHC 33.3, RDW 15.3, Plt Count 321, MPV 8.5, Neut % (Auto) 76.2, Lymph % (Auto) 15.0, [place] % (Auto) 6.9, Eos % (Auto) 1.4, Baso % (Auto) 0.5, Neut # (Auto) 8.1 H, Lymph # (Auto) 1.6, [place] # (Auto) 0.7, Eos # (Auto) 0.2, Baso # (Auto) 0.1, Sodium 131 L, Potassium 3.5, Chloride 105, Carbon Dioxide 16 L, Anion Gap 13.5, BUN 29 H, Creatinine 1.70 H, Estimated Creat Clear 73, Estimated GFR 47 L, Est GFR ( Amer) 57 L D, Glucose 101 H, Calcium 8.6, Magnesium 1.8, Total Bilirubin 0.6, AST 67 H D, ALT 30 D, Alkaline Phosphatase 77, Troponin I < 0.01, Total Protein 6.8, Albumin 3.7 D, Globulin 3.1, Albumin/Globulin Ratio 1.2 I & O for Last 24 hours: Intake & Output 03/31/24 04/01/24 04/02/24 04/03/24 23:59 23:59 23:59 23:59 Intake Total 540 / 540 Output Total 0 / 0 Balance 540 / 540 Weight 82.554 kg 83.234 kg Constitutional Constitutional: no acute distress and cooperative *Routine HEENT Exam Head: Present normocephalic and atraumatic Eye: Present EOMI and PERRL; Absent scleral injection ENT: Present mucous membranes moist *Routine Neck Exam Neck: Absent lymphadenopathy *Routine Re
[2024-04-04 04:00] VITALS: BP 130/70; PULSE 96; RESP 16; TEMP 36.8; O2SAT 98; BMI 26.2
[2024-04-04 07:49] LABS: Basophils # 0.1 K/mm3 (0-0.2); Basophils % 0.5 % (0.1-2.0); Eosinophils # 0.2 K/mm3 (0.0-0.4); Eosinophils % 1.9 % (0.1-12.0); Hematocrit 29.4 % (42.0-52.0); Hemoglobin 9.7 g/dL (14.1-18.0); Lymphocytes # 1.8 K/mm3 (0.7-4.5); Mean Corpuscular Hemoglobin 25.7 pg (27.0-31.2); Mean Corpuscular Volume 77.9 fl (80-94); Mean Platelet Volume 7.9 fl (7.4-10.4); Monocytes # 0.6 K/mm3 (0.1-1.0); Monocytes % 6.8 % (1.7-9.3); Neutrophils # 6.4 K/mm3 (1.8-7.8); Neutrophils % 70.8 % (37.0-80.0); Platelet Count 289 K/mm3 (142-424); Red Blood Count 3.77 M/mm3 (4.60-6.20); Red Cell Distribution Width 15.5 % (11.5-17.5)
[2024-04-04 08:00] VITALS: BP 112/70; PULSE 90; RESP 20; TEMP 37; O2SAT 100
[2024-04-04 08:02] LABS: Anion Gap 10.5 mEq/L (5-15); Blood Urea Nitrogen 18 mg/dl (9-20); Calcium 8.8 mg/dl (8.4-10.2); Carbon Dioxide 19 mmol/L (22.0-30.0); Chloride 108 mmol/L (98-107); Creatinine Clearance Estimated 89 mL/min (50-200); Estimated Glomerular Filt Rate 59 ml/min (>60); GFR (African American) 71 ML/MIN (>60); Glucose 90 mg/dl (74-100); Potassium 3.5 mmoL/L (3.5-5.1); Sodium 134 mmol/L (136-145)
[2024-04-04 08:15] LABS: Procalcitonin 0.071 ng/mL (0.0-2.0)
--- NOTE | 2024-04-04 11:54 | EXP.DC.SUM ---
General Admission date:: 04/02/24 Discharge date: 04/04/24 HPI HPI HPI: This is a 34-year-old male with PMHx of HTN, asthma, allergy and kidney transplant approximately 10 years ago. He is only on mycophenolate and low-dose sirolimus at this time. He presented to the ED today with complaint of nausea, vomiting and diarrhea that started last week. Patient stated he drank the tap water a couple times and then started with the symptoms of nausea, vomiting and diarrhea, that become progressively worse. He has no fevers but he does have chills for the last week. Denies joint pain but feels very dehydrated. He has been on nitazoxanide for diagnosis of Cryptosporidium. He has had 3-4 episodes of diarrhea today. He did try to eat but as soon as he ate he had an episode of vomiting and diarrhea. Admitted for further monitoring and evaluation. Hospital Course Hospital Course Hospital Course: The patient was admitted to the telemetry unit with IV fluid resuscitation and routine lab evaluation. He was provided antiemetic therapy and his diet was advanced as tolerated. His laboratory studies identified improved creatinine down to 1.4 on discharge with a baseline of 1.0 noted. The patient's parents remained at bedside throughout his hospital stay. He identified improvement and requested to be discharged home to follow-up with his PCP and renal transplant team. We discussed his low and stable blood pressures off his BOBBY inhibitor therapy while admitted. We have recommended to hold his BOBBY inhibitor therapy until his renal function returns to baseline. He understands the importance of seeing his PCP this week for repeat renal function evaluation. He understands the importance of daily adequate oral hydration. He plans to continue his antibiotic therapy. I spent 35 minutes in [id number] time with the patient and nursing staff concerning the discharge process. We discussed the admitting diagnoses and hospital course. We discussed identified improvement and the patient's desire to be discharged. We reviewed inpatient studies and imaging. The patient voiced understanding on the importance of follow-up with his primary care provider and renal specialist(s). The patient plans to be compliant with the medication regimen prescribed and follow-up appointments. He understands that he can return to the emergency department with any sudden changes or concerns. Exam Data for Last 24 hours Vital signs and Labs for Last 24 Hours: Temp Pulse Resp BP Pulse Ox O2 Del Method 98.6 F 90 20 112/70 100 Room Air 04/04/24 08:00 04/04/24 08:00 04/04/24 08:00 04/04/24 08:00 04/04/24 08:00 04/04/24 08:50 Laboratory Results - last 24 hr 04/04/24 07:15: WBC 9.0, RBC 3.77 L, Hgb 9.7 L, Hct 29.4 L, MCV 77.9 L, MCH 25.7 L, MCHC 33.0, RDW 15.5, Plt Count 289, MPV 7.9, Neut % (Auto) 70.8, Lymph % (Auto) 20.0, [place] % (Auto) 6.8, Eos % (Auto) 1.9, Baso % (Auto) 0.5, Neut # (Auto) 6.4, Lymph # (Auto) 1.8, [place] # (Auto) 0.6, Eos # (Auto) 0.2, Baso # (Auto) 0.1, Sodium 134 L, Potassium 3.5, Chloride 108 H, Carbon Dioxide 19 L, Anion Gap 10.5, BUN 18 D, Creatinine 1.40 H, Estimated Creat Clear 89, Estimated GFR 59, Est GFR ( Amer) 71 D, Glucose 90, Calcium 8.8, Procalcitonin 0.071 I & O for Last 24 hours: Intake & Output 04/01/24 04/02/24 04/03/24 04/04/24 23:59 23:59 23:59 23:59 Intake Total 2334 / 2574 800 / 800 Output Total 0 / 0 0 / 0 Balance 2334 / 2574 800 / 800 Weight 82.554 kg 83.234 kg 83.092 kg Constitutional Constitutional: no acute distress and cooperative *Routine HEENT Exam Head: Present normocephalic and atraumatic Eye: Present EOMI and PERRL; Absent scleral injection ENT: Present mucous membranes moist *Routine Neck Exam Neck: Absent lymphadenopathy *Routine Respiratory Exam Respiratory: Present CTA bilaterally, normal respiratory effort and symmetric chest movement *Routine Cardiovascular Exam Cardiovascul
--- NOTE | 2024-04-05 16:07 | SW/DCPLANNER ---
Hospital discharge follow up phone call: patient stated that he is feeling better. Patient was not able to make a follow up appointment w/ Dr Arreaga today but stated he plans to do this tomorrow. Patient did not have any further needs/questions at this time.
== END 2024-04-04 13:48 | disposition home or self-care (01) ==
LOC: ER 22:49 → 2ND 23:45
PROVIDERS: Family Medicine; Nurse Practitioner; Nurse Practitioner Family; Admitting Provider Internal Medicine; Emergency Provider Emergency Medicine; PCP Family Medicine; Visit Provider Internal Medicine
DX: N17.9 Acute kidney failure, unspecified (principal); E87.6 Hypokalemia; E86.0 Dehydration; A09 Infectious gastroenteritis and colitis, unspecified; B45.8 Other forms of cryptococcosis; A08.8 Other specified intestinal infections; R11.0 Nausea; Z94.0 Kidney transplant status; D84.821 Immunodeficiency due to drugs; Z79.899 Other long term (current) drug therapy; I10 Essential (primary) hypertension; J45.909 Unspecified asthma, uncomplicated; E78.5 Hyperlipidemia, unspecified
CPT/HCPCS: 36415; 80048; 80053; 81001; 83605; 83690; 83735; 84145; 84484; 85025; 87389; 87507; 93005; 99285; G0378; J2405; J7030

== ENCOUNTER 2024-04-12 18:13 | Outpatient (CLI) | payer BC, SELFPAY ==
[2024-04-12 18:49] LABS: Basophils # 0.1 K/mm3 (0-0.2); Eosinophils # 0.3 K/mm3 (0.0-0.4); Eosinophils % 3.3 % (0.1-12.0); Hemoglobin 11.7 g/dL (14.1-18.0); Lymphocytes % 20.8 % (10-50); Mean Corpuscular HGB Conc 33.3 g/dL (31.8-35.4); Mean Corpuscular Hemoglobin 25.3 pg (27.0-31.2); Mean Corpuscular Volume 75.8 fl (80-94); Mean Platelet Volume 8.5 fl (7.4-10.4); Monocytes # 0.5 K/mm3 (0.1-1.0); Monocytes % 5.6 % (1.7-9.3); Neutrophils # 6.6 K/mm3 (1.8-7.8); Neutrophils % 69.3 % (37.0-80.0); Platelet Count 435 K/mm3 (142-424); Red Blood Count 4.62 M/mm3 (4.60-6.20); Reticulocyte % (Auto) 1.6 % (0.9-3.2); White Blood Count 9.6 K/mm3 (4.8-10.8)
[2024-04-12 19:14] LABS: Alanine Aminotransferase 46 U/L (12-78); Albumin Level 4.3 g/dl (3.5-5.0); Albumin/Globulin Ratio 1.2 (1.1-1.8); Alkaline Phosphatase 115 U/L (38-126); Anion Gap 15.8 mEq/L (5-15); Aspartate Amino Transferase 36 U/L (17-59); Bilirubin,Total 0.5 mg/dl (0.2-1.3); Blood Urea Nitrogen 32 mg/dl (9-20); Calcium 9.4 mg/dl (8.4-10.2); Carbon Dioxide 20 mmol/L (22.0-30.0); Chloride 93 mmol/L (98-107); Estimated Glomerular Filt Rate 50 ml/min (>60); GFR (African American) 61 ML/MIN (>60); Globulin 3.5 g/dL (1.3-3.2); Glucose 114 mg/dl (74-100); Sodium 126 mmol/L (136-145); Total Protein,Serum 7.8 g/dl (6.3-8.2)
[2024-04-12 19:23] LABS: Potassium 2.8 mmoL/L (3.5-5.1)
[2024-04-12 20:55] LABS: Iron 45 ug/dL (49-181)
[2024-04-12 21:05] LABS: Total Iron Binding Capacity 258 ug/dL (261-462)
[2024-04-14 16:52] LABS: Erythropoietin 18.1 mIU/mL (2.6-18.5)
== END 2024-04-12 23:59 | disposition home or self-care (01) ==
LOC: LAB 18:14
PROVIDERS: PCP Family Medicine; Visit Provider Family Medicine
DX: N17.9 Acute kidney failure, unspecified (principal); D64.9 Anemia, unspecified
CPT/HCPCS: 36415; 80053; 82668; 83540; 83550; 85025; 85044

== ENCOUNTER 2024-04-18 15:48 | Outpatient (CLI) | payer BC, SELFPAY ==
[2024-04-18 16:57] LABS: Chloride 96 mmol/L (98-107); Sodium 130 mmol/L (136-145)
[2024-04-18 17:00] LABS: Anion Gap 13.6 mEq/L (5-15); Blood Urea Nitrogen 19 mg/dl (9-20); Carbon Dioxide 23 mmol/L (22.0-30.0); Estimated Glomerular Filt Rate 70 ml/min (>60); GFR (African American) 85 ML/MIN (>60)
[2024-04-18 17:01] LABS: Calcium 9.4 mg/dl (8.4-10.2); Glucose 106 mg/dl (74-100)
[2024-04-18 17:06] LABS: Potassium 2.6 mmoL/L (3.5-5.1)
== END 2024-04-18 23:59 | disposition home or self-care (01) ==
LOC: LAB 15:48
PROVIDERS: PCP Family Medicine; Visit Provider Family Medicine
DX: N17.9 Acute kidney failure, unspecified (principal)
CPT/HCPCS: 36415; 80048

== ENCOUNTER 2024-04-21 18:38 | Outpatient (CLI) | payer BC, SELFPAY ==
[2024-04-21 19:19] LABS: Chloride 101 mmol/L (98-107); Sodium 134 mmol/L (136-145)
[2024-04-21 19:22] LABS: Anion Gap 11.9 mEq/L (5-15); Blood Urea Nitrogen 8 mg/dl (9-20); Calcium 9.2 mg/dl (8.4-10.2); Carbon Dioxide 24 mmol/L (22.0-30.0); Estimated Glomerular Filt Rate 87 ml/min (>60); GFR (African American) 105 ML/MIN (>60); Glucose 111 mg/dl (74-100)
[2024-04-21 19:40] LABS: Potassium 2.9 mmoL/L (3.5-5.1)
== END 2024-04-21 23:59 | disposition home or self-care (01) ==
LOC: LAB 18:40
PROVIDERS: PCP Family Medicine; Visit Provider Family Medicine
DX: N17.9 Acute kidney failure, unspecified (principal)
CPT/HCPCS: 36415; 80048

== ENCOUNTER 2024-05-17 18:15 | Outpatient (CLI) | payer BC, SELFPAY ==
[2024-05-17 18:47] LABS: Anion Gap 7.8 mEq/L (5-15); Blood Urea Nitrogen 5 mg/dl (9-20); Calcium 8.9 mg/dl (8.4-10.2); Carbon Dioxide 31 mmol/L (22.0-30.0); Chloride 101 mmol/L (98-107); Estimated Glomerular Filt Rate 112 ml/min (>60); GFR (African American) 136 ML/MIN (>60); Glucose 100 mg/dl (74-100); Sodium 137 mmol/L (136-145)
[2024-05-17 19:05] LABS: Potassium 2.8 mmoL/L (3.5-5.1)
== END 2024-05-17 23:59 | disposition home or self-care (01) ==
LOC: LAB 18:16
PROVIDERS: PCP Family Medicine; Visit Provider Family Medicine
DX: N17.9 Acute kidney failure, unspecified (principal)
CPT/HCPCS: 80048